=== PATIENT | female | born 1955 | race Caucasian/White ===

== ENCOUNTER 2019-04-03 17:17 | Emergency (ER) | payer MEDICARE ==
[2019-04-03] MEDS ORDERED: ONDANSETRON 4 MG TAB.RAPDIS PO ONE (18:59)
--- NOTE | 2019-04-03 19:02 | ER Document Report ---
ED Medical Screen (RME) - General Chief Complaint: Vomiting Stated Complaint: NAUSEA, VOMITING Time Seen by Provider: 04/03/19 18:59 Primary Care Provider: ZAK PASCAL MD [Primary Care Provider] - Follow up as needed Mode of Arrival: Wheelchair Information source: Patient Notes: Patient presents emergency department with reports of sick to her stomach all day vomited one time dizziness and nausea. Reports she has bad headache. Patient is stage IV anal cancer. Clients pain medication but except Zofran for nausea medicine. I have greeted and performed a rapid initial assessment of this patient. A comprehensive ED assessment and evaluation of the patient, analysis of test results and completion of the medical decision making process will be conducted by additional ED providers. Dictation of this chart was performed using voice recognition software; therefore, there may be some unintended grammatical errors. TRAVEL OUTSIDE OF THE [place] IN LAST 30 DAYS: No - Related Data Allergies/Adverse Reactions: codeine Allergy (Verified 04/03/19 17:19) Penicillins Allergy (Verified 04/03/19 17:19) Physical Exam - Vital signs Vitals: Temp Pulse Resp BP Pulse Ox 98.0 F 85 16 132/78 H 98 04/03/19 17:41 04/03/19 17:41 04/03/19 17:41 04/03/19 17:41 04/03/19 17:41 Course - Vital Signs Vital signs: Temp Pulse Resp BP Pulse Ox 98.0 F 85 16 132/78 H 98 04/03/19 17:41 04/03/19 17:41 04/03/19 17:41 04/03/19 17:41 04/03/19 17:41 Doctor's Discharge - Discharge Referrals: ZAK PASCAL MD [Primary Care Provider] - Follow up as needed
--- NOTE | 2019-04-03 19:35 | RADIOLOGY REPORT (SQ) ---
EXAM DESCRIPTION: CT HEAD WITHOUT COMPLETED DATE/TIME: 04/03/2019 7:12 pm REASON FOR STUDY: headache, hx stage 4 cancer COMPARISON: None. TECHNIQUE: Axial images acquired through the brain without intravenous contrast. Images reviewed wit h bone, brain and subdural windows. Images stored on PACS. All CT scanners at this facility use dose modulation, iterative reconstruction, and/or weight based d osing when appropriate to reduce radiation dose to as low as reasonably achievable (ALARA). [facility]: Dose Right [facility]: CareDose [facility]: Dose Right [facility]: Teradose 4D [facility]: [employer] RADIATION DOSE: CT Rad equipment meets quality standard of care and radiation dose reduction techniq ues were employed. CTDIvol: 53.2 mGy. DLP: 964 mGy-cm.. LIMITATIONS: None. FINDINGS: VENTRICLES: Normal size and contour. CEREBRUM: No masses. No hemorrhage. No midline shift. Age appropriate white matter. No evidence for a cute infarction. CEREBELLUM: No masses. No hemorrhage. No alteration of density. No evidence for acute infarction. EXTRA-AXIAL SPACES: No fluid collections. ORBITS AND GLOBE: No intra- or extraconal masses. Normal contour of globe without masses. CALVARIUM: No fracture. PARANASAL SINUSES: No fluid or mucosal thickening. SOFT TISSUES: No mass or hematoma. OTHER: No other significant finding. IMPRESSION: NO ACUTE INTRACRANIAL FINDINGS. EVIDENCE OF ACUTE STROKE: NO. TECHNICAL DOCUMENTATION: JOB ID: [id number] Quality ID # 436: Final reports with documentation of one or more dose reduction techniques (e.g., Au tomated exposure control, adjustment of the mA and/or kV according to patient size, use of iterative reconstruction technique) 2010 [employer]- All Rights Reserved Reading location - IP/workstation name: [email or web address]
[2019-04-03 21:37] LABS: ABSOLUTE BASOPHILS # (AUTO) 0.1 10^3/uL (0.0-0.2); ABSOLUTE MONOCYTES (AUTO) 0.2 10^3/uL (0.1-1.4); ABSOLUTE NEUT (AUTO) 9.6 10^3/uL (1.7-8.2); BASOPHILS % (AUTO) 0.6 % (0-2); HEMATOCRIT 37.4 % (36.0-47.0); HEMOGLOBIN 12.4 g/dL (12.0-15.5); LYMPHOCYTES % (AUTO) 9.5 % (13-45); MEAN CORPUSCULAR HEMOGLOBIN 27.6 pg (27.0-33.4); MEAN CORPUSCULAR HGB CONC 33.2 g/dL (32.0-36.0); MEAN CORPUSCULAR VOLUME 83 fl (80-97); PLATELET COUNT 296 10^3/uL (150-450); RED CELL DISTRIBUTION WIDTH 14.6 % (11.5-14.0); SEGMENTED NEUTROPHILS % (AUTO) 87.9 % (42-78); TOTAL CELLS COUNTED % (AUTO) 100 %
[2019-04-03 21:51] LABS: ALANINE AMINOTRANSFERASE 22 U/L (9-52); ALBUMIN 4.6 g/dL (3.5-5.0); ALKALINE PHOSPHATASE 72 U/L (38-126); ANION GAP 11 (5-19); ASPARTATE AMINO TRANSFERASE 19 U/L (14-36); BILIRUBIN,DIRECT 0.3 mg/dL (0.0-0.4); BILIRUBIN,TOTAL 0.4 mg/dL (0.2-1.3); BLOOD UREA NITROGEN 16 mg/dL (7-20); CALCIUM 10.2 mg/dL (8.4-10.2); CARBON DIOXIDE 23 mmol/L (22-30); CHLORIDE 108 mmol/L (98-107); GLUCOSE 104 mg/dL (75-110); POTASSIUM 3.8 mmol/L (3.6-5.0); SODIUM 141.7 mmol/L (137-145); TOTAL PROTEIN 7.9 g/dL (6.3-8.2)
--- NOTE | 2019-04-04 00:01 | ER Document Report ---
ED General - General Chief Complaint: Vomiting Stated Complaint: NAUSEA, VOMITING Time Seen by Provider: 04/03/19 18:59 Primary Care Provider: ZAK PASCAL MD [NO LOCAL MD] - Follow up as needed Mode of Arrival: Wheelchair Notes: 64-year-old female with stage IV anal cancer presents to the emergency department with chief complaint of transient binocular visual loss and vertigo that happened this morning. She has significant nausea and vomited earlier today. Her symptoms have greatly improved while she is been in the emergency department. The vision loss was very brief and occurred when she woke up but her vision returned and then she had significant vertigo afterwards. She had a tension type headache as well but denies any history of complex migraine headaches. She called her oncologist who requested that she come to the emergency department for concern for metastasis to the cerebellum and requested a CT head with contrast or MRI with/without. She denies any fevers or recent illness, denies any current visual disturbances, does not have vertigo but feels a little bit dizzy, no acute shortness of breath or chest pain, complains of nausea and vomiting as above, no other complaints. TRAVEL OUTSIDE OF THE [place] IN LAST 30 DAYS: No - Related Data Allergies/Adverse Reactions: codeine Allergy (Verified 04/03/19 17:19) Penicillins Allergy (Verified 04/03/19 17:19) Past Medical History - General Information source: Patient - Social History Smoking Status: Never Smoker Frequency of alcohol use: None Drug Abuse: None Family History: None Patient has suicidal ideation: No Patient has homicidal ideation: No Renal/ Medical History: Denies: Hx Peritoneal Dialysis Past Surgical History: Reports: Hx Abdominal Surgery - removal sigmoid colon, rectum, or anus - permanent cholostomy, Hx Appendectomy, Hx Cholecystectomy, Hx Hysterectomy Review of Systems - Review of Systems Constitutional: See HPI EENT: See HPI Cardiovascular: See HPI Respiratory: See HPI Gastrointestinal: See HPI Genitourinary: See HPI Female Genitourinary: No symptoms reported Musculoskeletal: No symptoms reported Skin: No symptoms reported Hematologic/Lymphatic: No symptoms reported Neurological/Psychological: See HPI Physical Exam - Vital signs Vitals: Temp Pulse Resp BP Pulse Ox 98.0 F 85 16 132/78 H 98 04/03/19 17:41 04/03/19 17:41 04/03/19 17:41 04/03/19 17:41 04/03/19 17:41 - Notes Notes: PHYSICAL EXAMINATION: Reviewed vital signs and charting by RN GENERAL: Alert, interacts well. No acute distress. HEAD: Normocephalic, atraumatic. EYES: Pupils equal and round. Extraocular movements intact. ENT: Oral mucosa moist, tongue midline. NECK: Full range of motion. Trachea midline. LUNGS: Clear to auscultation bilaterally, no wheezes, rales, or rhonchi. No respiratory distress. HEART: Regular rate and rhythm. No murmur ABDOMEN: soft, non-tender. No distention. Bowel sounds present EXTREMITIES: Moves all 4 extremities spontaneously. No edema, No cyanosis. 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 SKIN: Warm, dry, normal turgor. No rashes or lesions noted. Course - Re-evaluation Re-evalutation: 04/04/19 00:06 Generally well-appearing, labs overall unremarkable. Patient was sent here by her oncologist for amaurosis fugax with concern for brain mets secondary to her stage IV anal cancer. Patient initially scanned without contrast and we do not have MRI here at this time, which would be the optimum exam. But, her oncologist requested a CT head with or MRI so we will proceed with the CT. 04/04/19 02:15 CT head with contrast completed and did not show any evidence of metastatic involvement. Patient is feeling better and sleeping comfortably in the room. Patient had a normal neurologic exam. At this time patient is stable for discharge with close follow-up with her oncologist. - Vital Signs Vital signs: Temp Pulse Resp BP Pulse Ox 98.0 F 85 16 132/78 H 98 04/03/19 17:41 04/03/19 17:41 04/03/19 17:41 04/03/19 17:41 04/03/19 17:41 - Laboratory Result Diagrams: 04/03/19 21:00 04/03/19 21:00 Laboratory results interpreted by me: 04/03/19 04/03/19 21:00 21:00 WBC 11.0 H RDW 14.6 H Seg Neutrophils % 87.9 H Lymphocytes % 9.5 L Monocytes % 2.0 L Absolute Neutrophils 9.6 H Chloride 108 H Discharge - Discharge Clinical Impression: Amaurosis fugax, both eyes, Vertigo Condition: Good Disposition: HOME, SELF-CARE Additional Instructions: You were seen in the emergency department today for temporary vision loss, vert igo, dizziness. Your work-up here in the emergency department was all very reassuring. The CT head with contrast did not show any evidence of any lesions or metastatic involvement. As we discussed, though, an MRI brain with and without is the definitive diagnostic exam to assess the anatomy of the cerebellum. Please follow-up with your primary doctor and/or oncologist in the next 24 to 48 hours. If you develop acute vision loss again, have severe vertigo, have acute shortness of breath or chest pain, passout, or have any other concerning symptoms please merely return to the emergency department. Referrals: ZAK PASCAL MD [NO LOCAL MD] - Follow up as needed
[2019-04-04] MEDS ORDERED: DEXAMETHASONE SOD PHOS INJ 10 MG/1 ML VIAL IV ONE (00:07)
--- NOTE | 2019-04-04 02:06 | RADIOLOGY REPORT (SQ) ---
EXAM DESCRIPTION: CT HEAD WITH IV CONTRAST COMPLETED DATE/TME: 04/04/2019 00:01 CLINICAL HISTORY: 64 years, Female, amaurosis fugax/ concern cerebellar met COMPARISON: 04/03/2019 TECHNIQUE: Axial CT images of the brain were obtained after the administration of IV contrast. Sagittal and coronal reformats were performed. DLP 990 Images stored on PACS. All CT scanners at this facility use dose modulation, iterative reconstruction, and/or weight based dosing when appropriate to reduce radiation dose to as low as reasonably achievable (ALARA). [facility]: Dose Right [facility]: CareDose [facility]: Dose Right [facility]: Teradose 4D [facility]: [employer] LIMITATIONS: None. FINDINGS: There is no cortical infarct, hemorrhage, mass, edema, hydrocephalus, or extra-axial fluid collection. There are no areas of abnormal enhancement. There is no evidence of metastatic disease. Vascular enhancement appears normal. The aparicio-white matter differentiation is preserved. The paranasal sinuses and mastoid air cells are clear. The bones are unremarkable. IMPRESSION: No acute intracranial abnormality. No areas of abnormal enhancement. No evidence of metastatic disease. TECHNICAL DOCUMENTATION: Quality ID # 436: Final reports with documentation of one or more dose reduction techniques (e.g., Automated exposure control, adjustment of the mA and/or kV according to patient size, use of iterative reconstruction technique) copyright 2011 [employer]- All Rights Reserved
[2019-04-04 03:55] VITALS: BP 163/74
--- NOTE | 2019-04-04 18:54 | EKG REPORT ---
SEVERITY:- ABNORMAL ECG - SINUS ARRHYTHMIA, RATE 47-67 CONSIDER LEFT VENTRICULAR HYPERTROPHY : Confirmed by: Cheng Ann MD 04-Apr-2019 18:54:25
== END 2019-04-04 04:02 | disposition home or self-care (01) ==
LOC: ER 17:17
DX: G45.3 Amaurosis fugax (principal); R42 Dizziness and giddiness; R11.2 Nausea with vomiting, unspecified; R51 Headache; C21.0 Malignant neoplasm of anus, unspecified
CPT/HCPCS: 93005; 99284; 36415; 85025; 80053; 70450; 70460; 93010; A9270; J1642; S0119